=== PATIENT | male | born 1955 | race Caucasian/White ===

== ENCOUNTER → 2021-02-17 | Outpatient (CLI) | payer OTHER ==
[~2021-02-17] MED LIST: ASPIRIN E.C. 8181 MG PO; FISH OIL1000 MG PO; GLUCOPHAGE1000 MG PO; LANTUS100 U/ML SC; NEXIUM 40MG40 MG PO; NITROSTAT0.4 MG/TAB SL; PRINIVIL10 MG PO; SINGULAIR 110 MG/TAB PO; SYNTHROID 0.0.025 MG PO; TOPROL XL 50MG50 MG PO; TRICOR145 MG PO; VITAMIN D1000 IU; ZYRTEC 10MG10 MG PO
== END ==
LOC: COL.RAD 07:59
DX: M19.011 Primary osteoarthritis, right shoulder (principal); M75.111 Incomplete rotator cuff tear or rupture of right shoulder, not specified as traumatic; M75.21 Bicipital tendinitis, right shoulder
CPT/HCPCS: J3301

== ENCOUNTER 2021-06-18 12:20 | Day surgery (SDC) | payer OTHER ==
[2005-02-03 16:27] VITALS: BP 127/91
[~2021-06-18] VITALS: Ht 177.8 cm; Wt 82.0 kg
[2021-06-18] VITALS (8 sets, daily range): BP systolic 102–137; BP diastolic 64–95; PULSE 66–79; TEMP 98.5
[2021-06-18 12:54] LABS: MEAN CELL VOLUME 76 fl (80.0-100.0); MEAN CORPUSCULAR HGB CONC 29 g/dl (33.0-37.0); PLATELET COUNT 196 K/mm3 (130-400); RED BLOOD COUNT 3.98 M/mm3 (4.20-5.60); REDCELL DISTRIBUTION WIDTH-CV 16.2 % (11.5-14.5)
[2021-06-18 12:56] LABS: HEMATOCRIT 30.4 % (42.0-52.0); HEMOGLOBIN 8.9 g/dl (13.5-18.0); MEAN CORPUSCULAR HEMOGLOBIN 22 pg (27-31)
[2021-06-18 13:03] LABS: INR 1.1 (0.8-3.0); PROTHROMBIN TIME 12.5 SECONDS (9.7-12.8)
[2021-06-18 13:06] LABS: PARTIAL THROMBOPLASTIN TIME 30.3 SECONDS (26.0-37.0)
[2021-06-18 13:07] LABS: CREATININE, serum 1.57 mg/dL (0.72-1.25); POTASSIUM 4.4 mmol/L (3.5-4.5)
[2021-06-18] MEDS ORDERED: CRESTOR20 MG PO (13:18)
[2021-06-18] MEDS ORDERED: COZAAR 50MG50 MG/TAB PO (13:18)
[2021-06-18] MEDS ORDERED: PROTONIX20 MG PO (13:19)
[2021-06-18] MEDS ORDERED: RANEXA 500MG T500 MG PO ×2 (13:20)
[2021-06-18] MEDS ORDERED: B-12 250 MCG PO (13:23)
[2021-06-18] MEDS ORDERED: MAGNESIUM200 MG PO (13:24)
--- NOTE | 2021-06-18 14:07 | NUR ---
See merge for all medication administration, vital sign, intervention, and assessment times.
--- NOTE | 2021-06-18 17:22 | NUR ---
PATIENT A&O X 3, NO C/O CHEST PAIN OTHER ACUTE ISSUES, IV DC INTACT, NO REDNESS, EDEMA, AIR COMPLETELY REMOVED FROM WRIST BAND, NO BLEEDING. DISCHARGED FROM UNIT VIA WHEEL CHAIR TO CAR, PATIENT BLONGING TAKEN WITH HIM.
== END 2021-06-18 17:23 | disposition home or self-care (01) ==
LOC: COL.CAR 12:20
PROVIDERS: Internal Medicine Cardiovascular Disease
DX: R06.09 Other forms of dyspnea (principal); I73.9 Peripheral vascular disease, unspecified; E78.5 Hyperlipidemia, unspecified; I12.9 Hypertensive chronic kidney disease with stage 1 through stage 4 chronic kidney disease, or unspecified chronic kidney disease; N18.2 Chronic kidney disease, stage 2 (mild); Z87.891 Personal history of nicotine dependence; Z79.899 Other long term (current) drug therapy; Z79.82 Long term (current) use of aspirin
CPT/HCPCS: C1887; J1644; J2250; J3010; J7030; Q9967

== ENCOUNTER 2022-01-07 10:01 | Outpatient (RCR) | payer MEDICARE, OTHER ==
[2005-02-03 16:27] VITALS: BP 127/91
[~2022-01-07] VITALS: Ht 177.8 cm; Wt 81.0 kg
[2022-01-07] VITALS (10 sets, daily range): BP systolic 104–123; BP diastolic 64–75; PULSE 80–89; TEMP 98.2–98.9
[~2022-01-07 10:01] MED LIST changes: +B-12 250 MCG PO; +COZAAR 50MG50 MG/TAB PO; +CRESTOR20 MG PO; +MAGNESIUM200 MG PO; +PROTONIX20 MG PO; +RANEXA 500MG T500 MG PO
[2022-01-07] MEDS ORDERED: ELIQUIS 5MG PO (12:11)
[2022-01-07] MEDS ORDERED: COZAAR 50MG50 MG/TAB PO (12:13)
[2022-01-07] MEDS ORDERED: SYNTHROID0.075 MG/T PO (12:13)
[2022-01-07] MEDS ORDERED: LANTUS100 U/ML SQ (12:14)
[2022-01-07] MEDS ORDERED: SYNJARDY 12.5-1 EACH PO (12:15)
--- NOTE | 2022-01-07 16:02 | NUR ---
Pt tolerated transfusion without issue. IV DC'd, site wrapped with coban. He ambulates to restroom and around dept to stretch legs before departing. Gait steady. He tolerated PO food and fluid without issue throughout time in dept. He refuses WC assistance out, stating he will walk to meet his at entrance.
== END 2022-01-07 16:04 | disposition home or self-care (01) ==
LOC: EUO 10:01
PROVIDERS: Internal Medicine Interventional Cardiology
DX: D64.9 Anemia, unspecified (principal)
CPT/HCPCS: J7050; P9016